=== PATIENT | male | born 1970 | race Caucasian/White ===

== ENCOUNTER → 2019-04-02 | Outpatient (CLI) | payer OTHER | LOC: M.LAB 09:18 | DX: E03.9 Hypothyroidism, unspecified (principal) ==

== ENCOUNTER → 2019-10-15 | Outpatient (CLI) | payer OTHER ==
--- NOTE | 2019-10-15 15:17 | EXE ---
[place] [address] STRESS ECHOCARDIOGRAM Name: YESICA BRAVO [place] Room: [facility]#: [id number] Admission: 10/15/19 Attend Phys: Ab Anaya, Discharge: Date of : 70 Date of Service: 10/15/19 1516 Report #: [id number] THIS REPORT FOR: cc: Kp Martinez MD, Dean L. MD Liston, Michael J. MD [facility] ~ APPROVED REPORT Study performed: 10/15/2019 13:34:13 Exam: Stress Echocardiogram Indication: Chest pain , Dyspnea Patient Location: Out-Patient Stress Nurse: Nanci Noel RN Supervising Physician: Srinivas Aguilera MD Status: routine Ht: 5 ft 10 in HR: 77 bpm BP: 110/88 mmHg Rhythm: NSR Medical History Medical History: Hashimotos Medications: Synthroid Allergies: No known drug allergies Cardiac Risk Factors: Tobacco History (Former), AGE Procedure The patient underwent an Exercise Stress Test using the Darwin Protocol. Blood pressure, heart rate, and EKG were monitored. An Echocardiogram was performed by epitaxial reactor technician in four stages in quad fashion. At peak stress, four selected images were obtained and placed side by side with resting images for comparison. Stress Test Details Stress Test: Exercise stress testing was performed using a Darwin protocol. HR Resting HR: 77 bpm Max Heart Rate (APMHR): 171 bpm Max HR Achieved: 156 bpm Target HR (85% APMHR): 145 bpm % of APMHR: 91 Recovery HR: 102 bpm HR response to stress: Normal [place] [address] STRESS ECHOCARDIOGRAM Name: YESICA BRAVO Room: [facility]#: [id number] Admission: 10/15/19 Attend Phys: Ab Anaya, Discharge: Date of : 70 Date of Service: 10/15/19 1516 Report #: [id number] Resting BP: 110/88 mmHg Max BP: 172/81 mmHg Recovery BP: 124/86 mmHg BP response to stress: Normal blood pressure response to stress. ECG Resting ECG: Sinus Rhythm Stress ECG: Sinus Tachycardia ST Change: None Arrhythmia: None Recovery ECG: Sinus Rhythm Recovery ST Change: None Recovery Arrhythmia: None Clinical Reason for Termination: Maximal effort, fatigue Exercise duration: 9 min sec Highest Stage Achieved: Stage 3: 3.4 mph at 14% grade. Exercise capacity: 10.16 METs The patient tolerated syndrome protocol exercise without significant cardiac symptoms. Stress ECG Conclusion The baseline 12-lead EKG show sinus rhythm without significant ST segment or T wave abnormality. EKGs obtained during and post exercise showed sinus rhythm and sinus tachycardia with no symptoms and ST segment or T wave changes when compared to baseline. Pre-Stress Echo The resting Echocardiogram showed normal left ventricular contractility with an estimated Ejection Fraction of about 55-60%. The resting echocardiogram demonstrated normal wall motion in all wall segments. Post-Stress Echo The stress Echocardiogram showed normal left ventricular contractility with an estimated Ejection Fraction of about >70%. Compared to rest, there were no stress-induced wall motion abnormalities. Clinical No clinical or ECG evidence for ischemia. Conclusion Clinical Response: [place] [address] STRESS ECHOCARDIOGRAM Name: YESICA BRAVO Room: [facility]#: [id number] Admission: 10/15/19 Attend Phys: Ab Anaya, Discharge: Date of : 70 Date of Service: 10/15/19 151 Report #: [id number] Exercise Capacity: Average Stress ECG Response: Non-ischemic Stress Echo Images: Non-ischemic The left ventricle is normal in size and wall thickness in both the rest and stress images. Other Information Study Quality: Good <Conclusion> The left ventricle is normal in size and wall thickness in both the rest and stress images. <ELECTRONICALLY SIGNED> By: Ab Anaya MD, [facility] 10/15/19 1516 151 1516 Ab Anaya MD, FACC /INF
== END ==
LOC: M.CRD 12:50
DX: R07.9 Chest pain, unspecified (principal)

== ENCOUNTER → 2020-03-18 | Outpatient (CLI) | payer OTHER ==
[2020-03-18 09:24] LABS: ABSOLUTE EOSINOPHILS 0.1 thou/uL (0.0-0.7); ABSOLUTE LYMPHOCYTES 1.7 thou/uL (0.8-5.3); ABSOLUTE MONOCYTES 0.5 thou/uL (0.0-1.2); ABSOLUTE NEUTROPHILS 3.6 thou/uL (1.6-8.1); BASOPHILS 0.8 %; EOSINOPHILS 1.9 %; HEMATOCRIT 46.2 % (42.0-52.0); HEMOGLOBIN 16.1 gm/dL (14.0-18.0); LYMPHOCYTES 28.5 %; MCH 30.9 pg (26.0-34.0); MCHC 34.8 g/dL (28.0-37.0); MCV 88.7 fL (80.0-100.0); MONOCYTES 8.3 %; MPV 9.3 fl. (7.2-11.1); NUCLEATED RBCS 0 /100WBC; PLATELET COUNT* 235 thou/uL (150-400); POLYS 60.5 %; RBC 5.21 mil/uL (4.50-6.00); RDW-CV 13.6 % (10.5-14.5); WBC 5.9 thou/uL (4.0-11.0)
[2020-03-18 09:39] LABS: ALBUMIN 4.2 g/dL (3.4-5.0); ALKALINE PHOSPHATASE 67 U/L (46-116); ANION GAP 8 mmol/L (7-16); BUN 22 mg/dL (7-18); CALCIUM 9.1 mg/dL (8.5-10.1); CHLORIDE 103 mmol/L (98-107); CHOLESTEROL 227 mg/dL (<200); CO2 30 mmol/L (21-32); CREATININE 1.4 mg/dL (0.6-1.3); GLUCOSE 88 mg/dL (70-99); HDL CHOLESTEROL 40 mg/dL (>40); LDL CHOLESTEROL 159 mg/dL (<100); POTASSIUM 4.2 mmol/L (3.5-5.1); SERUM ASSESSMENT Clear; SGOT 21 U/L (15-37); SGPT 35 U/L (30-65); SODIUM 141 mmol/L (136-145); TC:HDL 5.7 Ratio (Not establshd); TOTAL BILIRUBIN 0.6 mg/dL (<0.1-1.0); TOTAL PROTEIN 7.9 g/dL (6.4-8.2); TRIGLYCERIDE 144 mg/dL (<150); VLDL 29 mg/dL (<40)
[2020-03-19 02:06] LABS: GLYCOHEMOGLOBIN (HGB A1C) 5.5 % (4.8-5.6)
== END ==
LOC: M.LAB 08:50
PROVIDERS: ATTEND Internal Medicine
DX: E55.9 Vitamin D deficiency, unspecified (principal); Z00.00 Encounter for general adult medical examination without abnormal findings; E53.8 Deficiency of other specified B group vitamins; E78.00 Pure hypercholesterolemia, unspecified; E06.3 Autoimmune thyroiditis; E03.8 Other specified hypothyroidism; R73.01 Impaired fasting glucose; E61.1 Iron deficiency; R53.82 Chronic fatigue, unspecified; Z79.899 Other long term (current) drug therapy

== ENCOUNTER → 2020-06-25 | Outpatient (CLI) | payer OTHER | LOC: M.LAB 13:12 | PROVIDERS: ATTEND Internal Medicine Gastroenterology | DX: Z01.812 Encounter for preprocedural laboratory examination (principal); Z12.11 Encounter for screening for malignant neoplasm of colon; Z86.010 Personal history of colon polyps; Z20.828 Contact with and (suspected) exposure to other viral communicable diseases; Z80.0 Family history of malignant neoplasm of digestive organs ==